=== PATIENT | female | born 1975 | race Caucasian/White ===

== ENCOUNTER 2018-11-16 22:47 | Inpatient (IN) | payer OTHER ==
[~2018-11-16] VITALS: Ht 180.3 cm; Wt 149.8 kg
[2018-11-17] VITALS (10 sets, daily range): BP systolic 15–137; BP diastolic 58–72; PULSE 68–89; RESP 18–20; Ht 180.3 cm; Wt 149.8 kg
--- NOTE | 2018-11-17 | NUR ---
Pt direct admit from [facility] with CC of left leg redness and swelling under Dr. Morales. Pt alert and oriented x4. 43 y/o female with dx of left leg cellulitis. Afebrile. denies pain upon admission. Dr. Nguyen made aware of admission. Skin assessment per protocol. Pt oriented to environment, use of call light, use of telephone and visiting policy.Pt verbalized understanding.Pt complained of nausea per pt its because of pain med (Percocet) given at [place].MD aware. Needs attended and anticipated. Call light within reach. Will continue to monitor pt. MD to input orders
[2018-11-17] MEDS ORDERED: BISACODYL (EC) 5 MG TAB PO PRN (01:30)
[2018-11-17] MEDS ORDERED: NACL 0.9% 3 ML SYG IV SCH (01:30)
[2018-11-17] MEDS ORDERED: DOCUSATE SODIUM 100 MG CAP PO PRN (01:30)
[2018-11-17] MEDS ORDERED: ONDANSETRON 4 MG INJ IV PRN (01:30)
[2018-11-17] MEDS ORDERED: ACETAMINOPHEN 325 MG TAB PO PRN (01:30)
[2018-11-17] MEDS ORDERED: SOD CHLORIDE 0.9% 250 ML IV* ONE (03:25)
--- NOTE | 2018-11-17 03:25 | NUR ---
Received call from мария c/o Angelique Hgb- 6.6 , hematocrit = 23.4. Called Dr. Nguyen and made aware of result with order for BT stat 2 units PRBC and Pelvis SEJAL. Will carry out order.
[2018-11-17] MEDS ORDERED: VANCOMYCIN IV PER PHARMACY XX SCH (03:30)
--- NOTE | 2018-11-17 03:47 | NUR ---
ANDREA PER PHARMACY: Primary Impression: LE CELLULITIS Andrea L.D. = 2 gm X 1 dose Pharmacy to follow
[2018-11-17] MEDS ORDERED: VANCOMYCIN HCL 2 GM in SOD CHLORIDE 0.9% 500 ML IVPB SCH (05:00)
--- NOTE | 2018-11-17 05:38 | HP ---
Date/Time of Note Date/Time of Note DATE: 11/17/18 TIME: 05:24 Assessment/Plan VTE Prophylaxis SCD applied (from Nsg): Yes Pharmacological prophylaxis: NA/contraindicated Pharm contraindication: bleeding Lines/Catheters IV Catheter Type (from Nrsg): Saline Lock Assessment/Plan Hospital Course This is a 43-year female being admitted to the [facility] floor for: #1 left lower extremity cellulitis: Vancomycin IV per pharmacy, will obtain a left lower extremity ultrasound to rule out DVT. #2 symptomatic microcytic anemia: Secondary likely to bleeding uterine fibroid. She received 1 unit of PRBC at the transfer facility. Her repeat blood work at [facility] showed hemoglobin of 6.6. At the current time will order 2 units of PRBCs. Repeat CBC after transfusion. Check ferritin, iron stores #3 history of uterine fibroids: Patient has a outpatient OB appointment going through authorization. Outpatient ultrasound and treatment for this. If bleeding persists while in-house consider ultrasound in-house and OB consultation. #4 history of hypothyroidism: TSH did come elevated at 5.3, will check free T3- T4. Given patient's symptoms consider initiating treatment with levothyroxine prior to discharge. #5 morbid obesity: Hemoglobin A1c 6.0, check lipid panel, TSH is elevated 5.3, check T3-T4 #6 DVT GI prophylaxis: SCDs to the right lower extremity, no GI prophylaxis ind icated Further treatment strategy will be implemented as per the clinical course. Result Diagram: 11/17/18 0145 11/17/18 0145 Results 24hrs Laboratory Tests Test 11/17/18 01:45 White Blood Count 9.2 Red Blood Count 3.32 L Hemoglobin 6.6 *L Hematocrit 23.4 L Mean Corpuscular Volume 70.5 L Mean Corpuscular Hemoglobin 19.9 L Mean Corpuscular Hemoglobin Concent 28.2 L Red Cell Distribution Width 19.4 H Platelet Count 250 Mean Platelet Volume 9.1 Immature Granulocytes % 0.700 H Neutrophils % 69.1 Lymphocytes % 19.2 Monocytes % 7.0 Eosinophils % 3.9 Basophils % 0.1 Nucleated Red Blood Cells % 0.8 H Immature Granulocytes # 0.060 H Neutrophils # 6.4 Lymphocytes # 1.8 Monocytes # 0.7 Eosinophils # 0.4 Basophils # 0.0 Nucleated Red Blood Cells # 0.1 H Erythrocyte Sedimentation Rate 25 H Sodium Level 139 Potassium Level 4.2 Chloride Level 101 Carbon Dioxide Level 26 Anion Gap 12 Blood Urea Nitrogen 11 Creatinine 0.67 Est Glomerular Filtrat Rate mL/min > 60 Glucose Level 116 Hemoglobin A1c 6.0 H Calcium Level 9.1 Magnesium Level 2.1 Iron Level 58 Total Iron Binding Capacity 504 H Percent Iron Saturation 12 L Ferritin 6.5 Total Bilirubin 0.4 Direct Bilirubin 0.00 Indirect Bilirubin 0.4 Aspartate Amino Transf (AST/SGOT) 20 Alanine Aminotransferase (ALT/SGPT) 14 Alkaline Phosphatase 83 Total Protein 7.1 Albumin 3.9 Globulin 3.20 Albumin/Globulin Ratio 1.21 Thyroid Stimulating Hormone (TSH) 5.300 H Free Thyroxine Index 2.46 Thyroxine (T4) 9.8 Triiodothyronine (T3) Uptake 25.1 HPI/ROS Admit Date/Time Admit Date/Time Nov 17, 2018 at 00:48 Hx of Present Illness Chief complaint: Left lower leg redness times 1 week, weakness Please note that I did not receive full documentation from the transferring facility aside from blood work. This is a 43-year-old female with a past medical history of fibroids and anemia who presented to outside hospital with symptoms of left lower leg swelling times 1 week. Patient reports that one week ago she started noticing swelling and redness and warmth of her left lower leg. She denies any chest pain or shortne ss of breath. She denied any fevers. She did report that it was tender to touch and. At the transversely she did receive a dose of antibiotics and now she states that her pain has better and that the redness has subsided. Patient also reports that she has been feeling weak and tired. She was diagnosed in the past with anemia secondary to her fibroids and she does have an outpatient authorization to see OB in process. She also has a history of hypothyroidism but she currently is not on any medication as apparently she was not required to be on any. Pertinent laboratory findings from transfer facility showed: Initial CBC showed a hemoglobin of 6.6 and hematocrit of 22.1 patient did receive 1 pack unit of PRBCs that showed a hemoglobin of 7.2 and hematocrit of 23.8. BNP was less than 25 and troponin was less than 0.029 urine test was negative Allergies: NKDA Medications: None ROS Const: As per HPI Eyes : No pain discharge or redness or change in visual acuity ENT: No pain, sore throat, congestion, congestion, dysphagia or discharge Respiratory: No shortness of breath, cough, sputum, wheezing, or pleuritic pain Cardiovascular: No chest pain, palpitation, PND, or edema GI : no change in appetite, abdominal pain, nausea, vomiting, diarrhea, constipation, or change in the color his stool Genitourinary: No dysuria, hematuria, flank pain , discharge or CVA tenderness Musculoskeletal: No joint pain, back pain, neck pain, restricted range of motion in neck or joints Skin: As per HPI Neuro: No headache, dizziness, syncope, seizure, focal weakness Endocrine: No polyuria, polydipsia, temperature intolerance Psych: No hallucination, depression, anxiety or suicidal ideation PMH/Family/Social Past Medical History Anemia, fibroid, abdominal hernia, hypothyroidism Medications Current Medications IV Flush (NS 3 ml) 3 ml PER PROTOCOL IV ; Start 11/17/18 at 01:30 Ondansetron HCl (Zofran Inj) 4 mg Q6H PRN IV NAUSEA/VOMITING; Start 11/17/18 at 01:30 Acetaminophen (Tylenol Tab) 650 mg Q6H PRN PO .PAIN 1-3 OR TEMP; Start 11/17/18 at 01:30 Docusate Sodium (Colace) 100 mg Q12H PRN PO .CONSTIPATION; Start 11/17/18 at 01:30 Bisacodyl (Dulcolax) 5 mg DAILY PRN PO .CONSTIPATION; Start 11/17/18 at 01:30 Vancomycin HCl (Vanco Iv Per Pharmacy) VANCOMYCIN PER PHARMACY PER PROTOCOL XX ; Start 11/17/18 at 03:30 Vancomycin HCl 2 gm/Sodium Chloride 500 ml @ 125 mls/hr ONCE IVPB ; Start 11/17/18 at 05:00; Stop 11/17/18 at 08:59 Coded Allergies: No Known Allergies (Verified Allergy, Unknown, 11/17/18) Past Surgical History D&C Family History Significant Family History: no pertinent family hx Social History Alcohol Use: none Smoking Status: Never smoker Drug Use: none Exam/Review of Systems Vital Signs Vitals Vital Signs Date Temp Pulse Resp B/P (MAP) Pulse Ox O2 O2 Flow FiO2 Time Delivery Rate 11/17/18 97.5 75 20 136/71 97 02:00 (92) Exam Exam General: This is a pleasant female currently lying in bed in no acute distress HEENT: Atraumatic, normocephalic. The pupils are equal, round and reactive. Extraocular motor are intact Neck: Supple with full range of motion. No rigidity or meningismus Chest: Nontender Lungs: Clear to auscultation bilaterally no crackles rales or wheezing Heart: Normal S1-S2, Regular rhythm and rate. Abdomen: Morbidly obese, soft , nontender, nondistended , bowel sounds are present. No guarding no rebound tenderness , No masses or organomegaly. No costovertebral temporal angle mass Extremities: Mild tenderness to touch of the lower leg above the area of the ankle Skin: Left lower extremity mild swelling and erythema noted of the lower leg above the ankle, mild tenderness to palpation, warm to touch Neurologic: Normal mental status, speech normal, cranial nerves II through XII are intact, motor and sensory are intact, no focal weakness PABLITO MONTIEL Nov 17, 2018 05:35
--- NOTE | 2018-11-17 06:00 | NUR ---
Started 1st unit of PRBC verified information by 2 RN's. BT explained to pt. Pt's Guide to BT given and explained. VS= BP 110/57, R18, P=66, T=97.8 Saturating at 97% RA. Denies pain. Will continue to monitor pt.
--- NOTE | 2018-11-17 06:06 | NUR ---
Spoke with Dr. Nguyen per do not order Pelvis SEJAL anymore.
--- NOTE | 2018-11-17 06:51 | NUR ---
End of shift Report: Pt sleeping on bed in comfortable at all times with ongoing 1st BT well-naomi. No sob. No resp distress. denies pain. No A/R noted during BT. Needs attended and anticipated. For stool collection, no BM this shift. Pt with order of Vanco IV once, unable to IV with BT ongoing. Will endorse to am shift nurse. Pharmacy [facility]. Needs attended and anticipated. Call light within reach.
--- NOTE | 2018-11-17 11:25 | QN ---
Documentation Comment 43-year-old morbidly obese female with a history of uterine fibroid, anemia, hypothyroidism, admitted with left lower extremity cellulitis without any trauma/bite. Patient is on appropriate antimicrobial which we will continue. I will also added blood culture. Cellulitis improving clinically. Instructed to elevate affected extremity. Follow-up labs in a.m. Weight reduction advised. Continue home medication for underlying comorbidities. Case discussed with RENETTA Thomson NP Nov 17, 2018 11:25
--- NOTE | 2018-11-17 12:00 | NUR ---
SS Note: AHCD/Initial Visit The patient is a 43-year female being admitted due to left lower extremity cellulitis, per record. SW met with pt to complete initial psychosocial assessment and provide AHCD information. Pt awake, alert, and oriented x4. Pt was very pleasant and engaging. Pt reported she is unmarried and has a total of 3 adult children. Pt verbally appointed her sister, Nancy Hendrickson , as surrogate decision maker/spokesperson. Pt address on facesheet is her sister's address and she is temporarily residing with her daughter. Pt unable to provide daughter's address but stated it's located on [facility]. 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 She is independent with all ADLs and does not require DME. Pt is enrolled in [employer] and stated she has a PCP. SW introduced self and the role of the healthcare social worker. SW discussed and provided education about completing and facilitating the AHCD. Pt was provided with AHCD form. No AHCD f/u requested. SW remains available for f/u as needed.
--- NOTE | 2018-11-17 16:32 | NUR ---
VANCO PER RX: 43F 5FT 11 IN. 150 KG SCR 0.67 WBC 8.5 Problem List: LLE CELLULITIS, symptomatic microcytic anemia likely 2/2 bleeding uterine fibroid, morbid obesity Current ABXs: VANCO Comments/Plan: VANCO 2 GM IVPB Q12H FOR NOW.
--- NOTE | 2018-11-17 19:06 | NUR ---
Two units of PRBCs administered today for low Hgb in am. H/H stable now 7.2/25.6. No active bleeding noted. VSS. Pt naomi transfusions well w/o ansy S/S of a transfusion rxn. Naomi diet well. Loading dose of Vanco- started @ 1553 d/t blood transufion- Pharmacist Bethany notified. Pt will need Iron transfusion as we only have x1 IV in Left hand ( New IV - lost access to ELENA). Will endorse to oncoming RN. x1 SBA to BR- gait steady. - Voiding adequate amts. Noted scant amt of bleeding x1 in am. pt states, "this is not new, I have fibroids."Redness to LLE remains the same- no change.
[2018-11-17] MEDS: SOD FERRIC GLUC COMPLX 125 MG in SOD CHLORIDE 0.9% 100 ML IVPB SCH (22:51)
[2018-11-18 02:00] VITALS: BP 91/50; PULSE 70; RESP 17
[2018-11-18] MEDS: VANCOMYCIN HCL 2 GM in SOD CHLORIDE 0.9% 500 ML IVPB SCH ×2 (04:23→16:58)
--- NOTE | 2018-11-18 06:32 | NUR ---
End of shift Report: Pt awake on bed watching TV. No sob. No resp distress. Afebrile. denies pain s/p BT 2 units PRBC (11-17-18) no delayed reaction noted. For stool collection , occult blood . No BM this shift. Cont ATB Therapy, No A/R. Left leg elevated with pillows. No acute events overnight. Needs attended and anticipated. Will continue to monitor. Call light within reach. Will endorse accordingly.
[2018-11-18 08:00] VITALS: BP 106/55; PULSE 76; RESP 20
[2018-11-18] MEDS ORDERED: INFLUENZA VIRUS VACCINE 0.5 ML (DISPENSING) IM* ONE (09:00)
--- NOTE | 2018-11-18 10:45 | PN ---
Date/Time of Note Date/Time of Note DATE: 11/18/18 TIME: 10:44 Assessment/Plan VTE Prophylaxis Risk score (from Ns)>0 risk: 3 SCD applied (from Ns): Yes Pharmacological prophylaxis: NA/contraindicated Pharm contraindication: low risk/ambulating Lines/Catheters IV Catheter Type (from Nrsg): Peripheral IV Urinary Cath still in place: No Assessment/Plan Hospital Course SUBJECTIVE: Lying in bed comfortably. With significantly improved LLE swelling/edema/cellulitis OBJECTIVE: Vital signs-see below PHYSICAL EXAM: Constitutional: Well-developed, adequately built, lying in bed comfortably. Psych: nl mood/affect, no complaints Head: atraumatic, normocephalic Eyes: nl conjunctiva, nl sclera ENMT: mucosa pink and moist, nl external ears & nose Neck: non-tender, supple Respiratory: clear to auscultation, normal air movement Cardiovascular: nl pulses, regular rate and rhythm Gastrointestinal: non-tender, soft, bowel sounds active in all 4 quadrants. Musculoskeletal/extremities: +Swelling/tenderness LLE-Imprpved. nl extremities to inspection, motor strength equal bilaterally, no focal deficit. Normal pulses,no cyanosisNeurological: Alert oriented 3,nl speech, nl strength Skin: nl turgor ASSESSMENT/PLAN:43-year-old morbidly obese female with a history of uterine fibroid, anemia, hypothyroidism, admitted with left lower extremity cellulitis without any trauma/bite. 1. Left lower extremity cellulitis -Clinically improving. -Continue vancomycin and follow blood cultures. -Continue to elevate 2. Iron deficient anemia -Continue IV iron -Stable H&H 3. Subclinical hypothyroidism -T4 level normal. Recommend outpatient repeat labs in 4 weeks prior to starting on treatment. 4. Uterine fibroid -Likely culprit of number -Patient already has outpatient appointment with [facility]. 5. Prediabetes in obese -Recommend metformin 500 mg daily 6. Triglyceridemia -LDH stable. -Dietary modification diet/exercise advised 7. Morbid obesity with BMI 46.1 -As per #6 DVT prophylaxis: SCDs Disposition: Continue current medical management. Follow-up blood cultures and DC planning in a.m. if cultures are negative on oral antibiotics. Patient was seen in collaboration with . Result Diagram: 11/18/1852311/18/18 0524 Results 24hrs Laboratory Tests Test 11/18/18 05:24 11/18/18 07:37 White Blood Count 9.6 Red Blood Count 4.12 L Hemoglobin 8.4 L Hematocrit 29.6 L Mean Corpuscular Volume 71.8 L Mean Corpuscular Hemoglobin 20.4 L Mean Corpuscular Hemoglobin Concent 28.4 L Red Cell Distribution Width 20.9 H Platelet Count 291 Mean Platelet Volume 9.0 Immature Granulocytes % 0.900 H Neutrophils % 70.0 Lymphocytes % 17.2 Monocytes % 7.3 Eosinophils % 4.4 Basophils % 0.2 Nucleated Red Blood Cells % 0.6 H Immature Granulocytes # 0.090 H Neutrophils # 6.7 Lymphocytes # 1.7 Monocytes # 0.7 Eosinophils # 0.4 Basophils # 0.0 Nucleated Red Blood Cells # 0.1 H Sodium Level 139 Potassium Level 4.3 Chloride Level 99 Carbon Dioxide Level 29 Anion Gap 11 Blood Urea Nitrogen 12 Creatinine 0.71 Est Glomerular Filtrat Rate mL/min > 60 Glucose Level 106 Calcium Level 9.1 Lab Scanned Report BLOOD TRANSFUSION Exam/Review of Systems Exam Vitals Vital Signs Date Temp Pulse Resp B/P (MAP) Pulse Ox O2 O2 Flow FiO2 Time Delivery Rate 11/18/18 97.8 76 20 106/55 96 08:00 (72) 11/17/18 Room Air 16:17 Intake and Output 11/17/18 11/17/18 11/18/18 1515:00 23:00 07:00 IntakeIntake Total 1260 ml 2080 ml 340 ml OutputOutput Total 950 ml 300 ml BalanceBalance 310 ml 1780 ml 340 ml Results Results 24hrs Laboratory Tests Test 11/18/18 05:24 11/18/18 07:37 White Blood Count 9.6 Red Blood Count 4.12 L Hemoglobin 8.4 L Hematocrit 29.6 L Mean Corpuscular Volume 71.8 L Mean Corpuscular Hemoglobin 20.4 L Mean Corpuscular Hemoglobin Concent 28.4 L Red Cell Distribution Width 20.9 H Platelet Count 291 Mean Platelet Volume 9.0 Immature Granulocytes % 0.900 H Neutrophils % 70.0 Lymphocytes % 17.2 Monocytes % 7.3 Eosinophils % 4.4 Basophils % 0.2 Nucleated Red Blood Cells % 0.6 H Immature Granulocytes # 0.090 H Neutrophils # 6.7 Lymphocytes # 1.7 Monocytes # 0.7 Eosinophils # 0.4 Basophils # 0.0 Nucleated Red Blood Cells # 0.1 H Sodium Level 139 Potassium Level 4.3 Chloride Level 99 Carbon Dioxide Level 29 Anion Gap 11 Blood Urea Nitrogen 12 Creatinine 0.71 Est Glomerular Filtrat Rate mL/min > 60 Glucose Level 106 Calcium Level 9.1 Lab Scanned Report BLOOD TRANSFUSION Medications Medication Current Medications IV Flush (NS 3 ml) 3 ml PER PROTOCOL IV ; Start 11/17/18 at 01:30 Ondansetron HCl (Zofran Inj) 4 mg Q6H PRN IV NAUSEA/VOMITING; Start 11/17/18 at 01:30 Acetaminophen (Tylenol Tab) 650 mg Q6H PRN PO .PAIN 1-3 OR TEMP; Start 11/17/18 at 01:30 Docusate Sodium (Colace) 100 mg Q12H PRN PO .CONSTIPATION; Start 11/17/18 at 01:30 Bisacodyl (Dulcolax) 5 mg DAILY PRN PO .CONSTIPATION; Start 11/17/18 at 01:30 Vancomycin HCl (Vanco Iv Per Pharmacy) VANCOMYCIN PER PHARMACY PER PROTOCOL XX ; Start 11/17/18 at 03:30 Ferric Sodium Gluconate Complex 125 mg/Sodium Chloride 100 ml @ 100 mls/hr DAILY@1300 IVPB Last administered on 11/17/18at 22:51; Admin Dose 100 MLS/HR; Start 11/17/18 at 13:00; Stop 11/19/18 at 13:59 Vancomycin HCl 2 gm/Sodium Chloride 500 ml @ 125 mls/hr Q12H IVPB Last administered on 11/18/18at 04:23; Admin Dose 125 MLS/HR; Start 11/18/18 at 04:00 RENETTA ROSAS NP Nov 18, 2018 10:45
[2018-11-18] MEDS: SOD FERRIC GLUC COMPLX 125 MG in SOD CHLORIDE 0.9% 100 ML IVPB SCH (13:54)
[2018-11-18 14:48] VITALS: BP 106/58; PULSE 80; RESP 20
--- NOTE | 2018-11-18 20:34 | NUR ---
Pt reported during BS shift report that stool was collected for occult blood by BEVERAGE HOST. Oncoming RN states will F/U on this. Cont ATB Therapy, No A/R. Left leg elevated with pillows. Vanco trough @ 0300. IV to Left hand infiltrated, no swelling or redness noted, but c/o pain and sl. hard to touch to distal site of Left arm. Elevated extremity on pillow and placed ice pack- pt reports relief but LUE still cleaner. Instructed to call if pain persists, or swelling or redness occurs. Endorsed care to oncoming RN. Started new IV in RFA- asymptomatic.
[2018-11-18 20:37] VITALS: BP 122/58; PULSE 67; RESP 16
[2018-11-19 03:07] VITALS: BP 92/50; PULSE 72; RESP 18
[2018-11-19] MEDS: VANCOMYCIN HCL 2 GM in SOD CHLORIDE 0.9% 500 ML IVPB SCH (04:48)
--- NOTE | 2018-11-19 05:00 | NUR ---
End of Shift: Patient calm and comfortable on bed. No pain noted on left leg at this time, no fever, no sob, no chills,no nausea, no vomiting noted at this time. Will continue to monior
--- NOTE | 2018-11-19 05:06 | NUR ---
VANCOMYCIN PER PHARMACY Problem List: LLE CELLULITIS VANCO TROUGH = 15.1 CONTINUE WITH SAME THERAPY VANCO 2 GM Q12HRS Pharmacy to follow.
[2018-11-19 08:00] VITALS: BP 115/57; PULSE 68; RESP 18
--- NOTE | 2018-11-19 10:49 | PDOCDIS ---
Discharge Instructions CONDITION [id number] Patient Condition: [id number] Stable HOME CARE INSTRUCTIONS: [id number] Diet Instructions: [id number] Reduced Calorie FOLLOW UP/APPOINTMENTS Follow-up Plan Follow-up with primary care physician in 1 week RENETTA ROSAS NP Nov 19, 2018 10:49
[2018-11-19] MEDS ORDERED: DOCU-144 PO (10:52)
[2018-11-19] MEDS ORDERED: FER325 PO (10:52)
[2018-11-19] MEDS ORDERED: SULF1TAB31 PO (10:52)
[2018-11-19] MEDS ORDERED: WORK NOTE (10:52)
--- NOTE | 2018-11-19 10:56 | DS ---
Date/Time of Note Date/Time of Note DATE: 11/19/18 TIME: 10:54 Discharge Summary Admission/Discharge Info Admit Date/Time Nov 17, 2018 at 00:48 Discharge Date/Time Discharge Diagnosis 1. Left lower extremity cellulitis. Resolved 2. Iron deficient anemia 3. Subclinical hypothyroidism 4. Uterine fibroid. Has outpatient follow-up 5. Prediabetes in obese 6. Triglyceridemia 7. Morbid obesity with BMI 46.1 Patient Condition: Stable Procedures 11/17/2018. Ultrasound lower extremity venous. IMPRESSION: No sonographic evidence for deep venous thrombosis. Hospital Course 43-year-old morbidly obese female with a history of uterine fibroid, anemia, hypothyroidism, admitted with left lower extremity cellulitis without any trauma/bite. Patient responded to vancomycin. Blood cultures negative. No open wound to address. Cellulitis resolved. In regards to anemia most likely contributed by uterine fibroid and iron deficiency, patient received 3 doses of IV iron. Her H&H improved. Patient already has referral for [facility] as outpatient in the next few weeks. Patient was also noted for subclinical hypothyroidism for which she was recommended to repeat her labs in 4 weeks prior to determining treatment. She was also noted with triglyceridemia with stable LDH. She also had an A1c 6.0. Dietary modification with diet and exercise advised as patient is also morbidly obese. Patient verbalized instructions. She was given prescription for Bactrim for 10 days. Approximately 60 minutes was spent on coordinating the discharge on this patient. Patient was seen in collaboration with . [facility] [Work Note] No Conflict Check Please excuse Ms.Juanita Hopper attending work from 11/17/18 to 11/23/18 due her illness. Prov:ROSAS,RENETTA V. FIRE SYSTEMS INSPECTOR 11/19/18 Sulfamethoxazole/Trimethoprim* (Bactrim Ds* Tablet) 1 Each Tablet, 1 TAB PO BID for 10 Days, #20 TAB Take with 1 full cup of water and with meals. Prov:ROSAS,RENETTA V. [employer]RE SYSTEMS INSPECTOR 11/19/18 Docusate Sodium* (Colace*) 100 Mg Capsule, 100 MG PO DAILY, #30 CAP Prov:ROSAS,RENETTA V. [employer] SYSTEMS INSPECTOR 11/19/18 Ferrous Sulfate* (Ferrous Sulfate*) 325 Mg Tabec, 325 MG PO TID, #90 TAB Prov:RENETTA ROSAS NP 11/19/18 Follow-up Plan Follow-up with primary care physician in 1 week Primary Care Provider Not On Staff Doctor Pending Labs Laboratory Tests Test 11/18/18 13:30 11/19/18 02:47 Stool Occult Blood NEGATIVE (NEGATIVE) Vancomycin Level Trough 15.1 ug/ml (10.0-20.0) RENETTA ROSAS NP Nov 19, 2018 10:56
--- NOTE | 2018-11-19 12:02 | NUR ---
WOUND CONSULT FOR LEFT LOWER EXTREMITY CELLULITIS: 43 year old female admitted with LLE cellulitis. There is no open wound. Patient on IV antibiotic. Wound nurse sign-off from case. Radha Marion, BSN RN CWOCN
--- NOTE | 2018-11-19 13:41 | NUR ---
Heplock was dcd,dry and intact.Patient was discharged home. Dc instruction given to patient including her prescriptions. Instructed the patient to call her doctor for follow up check up and to continue taking her medications at home. patient verbalized understanding. patient left the floor in stable condition.
== END 2018-11-19 13:20 | disposition home or self-care (01) | DRG 603 ==
LOC: PP2 11-17 00:48
PROVIDERS: ADMIT Internal Medicine; ATTEND Internal Medicine
PROC: 30233N1 Transfusion of Nonautologous Red Blood Cells into Peripheral Vein, Percutaneous Approach (ICD-10-PCS; principal; 2018-11-17)
DX: L03.116 Cellulitis of left lower limb (principal); Z68.42 Body mass index [BMI] 45.0-49.9, adult; D25.9 Leiomyoma of uterus, unspecified; N93.9 Abnormal uterine and vaginal bleeding, unspecified; D50.0 Iron deficiency anemia secondary to blood loss (chronic); E66.01 Morbid (severe) obesity due to excess calories; E78.1 Pure hyperglyceridemia; R73.03 Prediabetes; E02 Subclinical iodine-deficiency hypothyroidism
CPT/HCPCS: 36430; 80048; 80053; 80061; 80202; 82270; 82728; 83036; 83540; 83735; 84436; 84439; 84443; 84479; 84481; 85025; 85651; 86850; 86900; 86901; 86920; 87040; 90686; 93971; J2916; J3370; J7040; P9016